=== PATIENT | male | born 1985 | race Caucasian/White ===

== ENCOUNTER → 2019-02-10 10:31 | Outpatient (CLI) | payer MEDICAID, SELFPAY ==
--- NOTE | 2019-02-10 11:05 | XR_ITS ---
PROCEDURE: XR CHEST 2V CLINICAL HISTORY: tob abuse COMPARISON: No exams were available for comparison FINDINGS: The cardiomediastinal silhouette and pulmonary vascularity are within normal limits. The lungs are clear without infiltrates, suspicious nodules, or pleural effusions. No acute bony abnormalities. IMPRESSION: No acute findings. Dictated by: Magen Clark MD 02/10/2019 11:34 Electronically signed by Magen Clark MD in [place] 02/10/2019 11:34
== END ==
PROVIDERS: PCP Nurse Practitioner Family; Visit Provider Internal Medicine
DX: R00.2 Palpitations (principal); R55 Syncope and collapse; F17.200 Nicotine dependence, unspecified, uncomplicated
CPT/HCPCS: 71046; 93270; 93306